=== PATIENT | male | born 1950 | race African-American/Black ===

== ENCOUNTER 2018-06-14 20:43 | Inpatient (IN) | payer MEDICAID ==
[~2018-06-14] VITALS: Ht 165.1 cm; Wt 49.9 kg
[~2018-06-14 20:43] MED LIST: Calcium Chloride 10% 10ml carpuject IVP ONE; Magnesium Sulfate 2ml Inj ONE; Sodium Bicarbonate 8.4% 50ml Inj ONE
--- NOTE | 2018-06-14 21:00 | NUR ---
ED Nurse Note: RECIEVED PT BIBA FROM HOME, PT WAS FOUND DOWN IN HIS HOME, UNKNOWN TIME, PT HAS BLOOD SUGAR LEVEL OF 24 REPORTED BY EMS, NO D50 GIVEN, PT IMMEDIATELY PLACED IN BED AND ON CARDIAC MONITORING, PT IS AWAKE AND ORIENTED TO NAME ONLY, PT IS VERY ALTERED, PT IS SPEAKING, AT TIMES CAN REMEMBER SMALL THINGS BUT IS VERY DISORIENTED, TP HAS PATENT SALINE LOCK IN RIGHT AC, PT ALSO NOTED WITH FECES ON ENTIRE BODY, WILL RESUME CARE ORDERED AND CONTINUE TO CLOSELY MONITOR.
--- NOTE | 2018-06-14 21:04 | Emergency Room Report ---
History of Present Illness General Chief Complaint: Abnormal Labs Source: Patient, EMS Present Illness HPI Patient presents by paramedics for altered mental status patient was found to be hypoglycemic at the scene It is reported that the patient's neighbor came to check on him found the patient altered and contacted paramedics Patient is slowly becoming to become more oriented after receiving glucose Patient still remains very sluggish History of present illness is significantly limited from the patient He denies history of diabetes and is otherwise fairly poor historian at this time Allergies: Coded Allergies: No Known Allergies (Verified , 11/08/10) Patient History Limited by: medical condition Past Medical History: see triage record Pertinent Family History: unable to obtain Reviewed Nursing Documentation: PMH: Agreed; PSxH: Agreed Review of Systems All Other Systems: negative except mentioned in HPI Physical Exam Vital Signs Date Time Temp Pulse Resp B/P (MAP) Pulse Ox O2 Delivery O2 Flow Rate FiO2 06/14/18 20:40 98.2 90 20 104/52 98 Room Air Sp02 EP Interpretation: reviewed, normal General Appearance: mild distress Head: normocephalic, atraumatic Eyes: bilateral eye Scleral Injection, bilateral eye other - Pupil sluggishly reactive ENT: no angioedema, dry mucus membranes Neck: full range of motion, supple Respiratory: no retraction, no accessory muscle use, crackles - Bilaterally Cardiovascular #1: regular rate, rhythm, no edema Gastrointestinal: soft Musculoskeletal: other - Patient sluggish to respond, no obvious focal deficit in the upper extremity Neurologic: responsive - To physical stimuli Skin: jaundice Lymphatic: no adenopathy Procedures Critical Care Time Critical Care Time 80 minutes for multiple re-evaluations. Critical presentation with critical findings requiring acute intervention not including any procedural time Medical Decision Making Diagnostic Impression: Primary Impression: Hepatic encephalopathy Additional Impressions: Non-STEMI (non-ST elevated myocardial infarction) Hypokalemia Hypoglycemia ER Course Patient presents by paramedics with very limited information patient himself extremely poor historian and in extreme status No other family or neighbors had presented we do not have any other contact information Patient's insurance company was contacted and after review of their medical records they also do not have any information to provide us Patient continues to have significantly abnormal findings laboratory work including significantly low potassium level Elevated troponin level Multiple electrolyte abnormalities CT imaging does not reveal any obvious pathology there is some abnormality on the chest however Patient initiated on prostration antibiotics Lactic acid also remains significantly elevated Ammonia level also elevated All being addressed in the emergency room and admitted in critical condition Sepsis reexamination Time:0100 VS refer to nursing note cvs: RRR respiratory: improved respiration peripheral pulses: 2+radial cap refill:<2 seconds skin exam: warm, dry, not mottled Labs Test 06/14/18 21:00 06/14/18 22:20 06/14/18 22:50 06/15/18 00:30 White Blood Count 8.5 K/UL (4.8-10.8) Red Blood Count 3.28 M/UL (4.70-6.10) Hemoglobin 9.2 G/DL (14.2-18.0) Hematocrit 27.4 % (42.0-52.0) Mean Corpuscular Volume 84 FL (80-99) Mean Corpuscular Hemoglobin 28.1 PG (27.0-31.0) Mean Corpuscular Hemoglobin Concent 33.6 G/DL (32.0-36.0) Red Cell Distribution Width 13.0 % (11.6-14.8) Platelet Count 78 K/UL (150-450) Mean Platelet Volume 9.9 FL (6.5-10.1) Neutrophils (%) (Auto) % (45.0-75.0) Lymphocytes (%) (Auto) % (20.0-45.0) Monocytes (%) (Auto) % (1.0-10.0) Eosinophils (%) (Auto) % (0.0-3.0) Basophils (%) (Auto) % (0.0-2.0) Differential Total Cells Counted 100 Neutrophils % (Manual) 73 % (45-75) Lymphocytes % (Manual) 7 % (20-45) Monocytes % (Manual) 2 % (1-10) Eosinophils % (Manual) 0 % (0-3) Basophils % (Manual) 0 % (0-2) Metamyelocytes % 2 % (0-0) Band Neutrophils 16 % (0-8) Platelet Estimate Decreased Platelet Morphology Normal Polychromasia 1+ Hypochromasia 1+ Anisocytosis 1+ Target Cells 1+ Prothrombin Time 19.1 SEC (9.30-11.50) Prothromb Time International Ratio 1.9 (0.9-1.1) Activated Partial Thromboplast Time 40 SEC (23-33) Sodium Level 141 MMOL/L (136-145) 143 MMOL/L (136-145) Potassium Level 1.2 MMOL/L (3.5-5.1) 1.4 MMOL/L (3.5-5.1) Chloride Level 103 MMOL/L (98-107) 106 MMOL/L (98-107) Carbon Dioxide Level 21 MMOL/L (21-32) 15 MMOL/L (21-32) Anion Gap 17 mmol/L (5-15) 22 mmol/L (5-15) Blood Urea Nitrogen 16 mg/dL (7-18) 17 mg/dL (7-18) Creatinine 1.6 MG/DL (0.55-1.30) 1.6 MG/DL (0.55-1.30) Estimat Glomerular Filtration Rate 52.8 mL/min (>60) 52.8 mL/min (>60) Glucose Level 90 MG/DL (74-106) 60 MG/DL (74-106) Lactic Acid Level 8.70 mmol/L (0.4-2.0) 12.70 mmol/L (0.66-2.22) Calcium Level 7.3 MG/DL (8.5-10.1) 6.6 MG/DL (8.5-10.1) Phosphorus Level 2.0 MG/DL (2.5-4.9) Magnesium Level 1.8 MG/DL (1.8-2.4) Total Bilirubin 2.3 MG/DL (0.2-1.0) Direct Bilirubin 1.8 MG/DL (0.0-0.3) Aspartate Amino Transf (AST/SGOT) 85 U/L (15-37) Alanine Aminotransferase (ALT/SGPT) 84 U/L (12-78) Alkaline Phosphatase 92 U/L (46-116) Ammonia 123 umol/L (11-32) Total Creatine Kinase 152 U/L (26-308) Creatine Kinase MB 3.5 NG/ML (0.0-3.6) Creatine Kinase MB Relative Index 2.3 Troponin I 0.120 ng/mL (0.000-0.056) Pro-B-Type Natriuretic Peptide 4040 pg/mL (0-125) Total Protein 4.0 G/DL (6.4-8.2) Albumin 1.6 G/DL (3.4-5.0) Globulin 2.4 g/dL Albumin/Globulin Ratio 0.7 (1.0-2.7) Lipase 53 U/L (73-393) Serum Alcohol < 3 mg/dL Urine Color Yellow Urine Appearance Clear Urine pH 6.5 (4.5-8.0) Urine Specific [place] 1.010 (1.005-1.035) Urine Protein 2+ (NEGATIVE) Urine Glucose (UA) 1+ (NEGATIVE) Urine Ketones Negative (NEGATIVE) Urine Blood 5+ (NEGATIVE) Urine Nitrite Negative (NEGATIVE) Urine Bilirubin 1+ (NEGATIVE) Urine Ictotest Positive (NEGATIVE) Urine Urobilinogen 4 MG/DL (0.0-1.0) Urine Leukocyte Esterase 1+ (NEGATIVE) Urine RBC 20-30 /HPF (0 - 0) Urine WBC 2-4 /HPF (0 - 0) Urine Squamous Epithelial Cells None /LPF (NONE/OCC) Urine Bacteria Moderate /HPF (NONE) Urine Opiates Screen Negative (NEGATIVE) Urine Barbiturates Screen Negative (NEGATIVE) Phencyclidine (PCP) Screen Negative (NEGATIVE) Urine Amphetamines Screen Negative (NEGATIVE) Urine Benzodiazepines Screen Negative (NEGATIVE) Urine Cocaine Screen Negative (NEGATIVE) Urine Marijuana (THC) Screen Positive (NEGATIVE) EKG Diagnostic Results Rate: normal Rhythm: NSR ST Segments: other - Nonspecific ST changes, EKG findings concerning for hypokalemia Rhythm Strip Diag. Results EP Interpretation: yes Rate: 88 Rhythm: NSR, no PVC's, no ectopy Chest X-Ray Diagnostic Results Chest X-Ray Diagnostic Results : Chest X-Ray Ordered: Yes # of Views/Limited/Complete: 1 View Indication: Shortness of Breath EP Interpretation: Yes Interpretation: no consolidation, no effusion, no pneumothorax, other - Right-sided increased markings with possible patchy infiltrate, heart size normal small effusions Impression: Other - Right-sided infiltrate Electronically Signed by: Jessica Young, DO CT/MRI/US Diagnostic Results CT/MRI/US Diagnostic Results : Impression CT chest/ abdomen pelvis:CT chest: Pulmonaryarteries:No pulmonaryembolism. Aorta:No aortic dissection or aneurysm. Lungs: Severe centrilobular emphysema. Areas of increased opacities in the right middle lobe and bilateral lower lobes, possiblyrepresenting edema or infectious/ inflammatoryprocess. Mild bilateral pleural effusions. Heart:Normal heart size. No pericardial effusion. Bones:No fracture. CT abdomen and pelvis: Liver: Enlarged severe fattyinfiltration. Gallbladder:No acute findings. Spleen, pancreas, and adrenal glands:No acute findings. Kidneys:No hydronephrosis or obstructive nephrolithiasis. Bowel:No bowel obstruction. Severelydistended rectumwith underlying air, nonspecific. Fluid-filled small bowel, correlate for gastroenteritis. Bladder:Unremarkable. Pelvic organs:Unremarkable. Aorta:No aneurysm. Bones:No acute fracture. Multiple ventral hernias containing loops of colon without causing obstruction. Mild ascites. Diffuse soft tissue stranding. Likelyrepresents mild anasarca CT head: no acute disease Last Vital Signs Date Time Temp Pulse Resp B/P (MAP) Pulse Ox O2 Delivery O2 Flow Rate FiO2 06/14/18 20:40 98.2 90 20 104/52 98 Room Air Status: improved Disposition: ADMITTED INPATIENT Condition: Critical Jessica Young DO Jun 14, 2018 21:04
[2018-06-14] MEDS ORDERED: NKM (21:13)
[2018-06-14 21:33] LABS: HEMATOCRIT 27.4 % (42.0-52.0); HEMOGLOBIN 9.2 G/DL (14.2-18.0); MEAN CORPUSCULAR VOLUME 84 FL (80-99); PLATELET COUNT 78 K/UL (150-450); RED BLOOD COUNT 3.28 M/UL (4.70-6.10); WHITE BLOOD COUNT 8.5 K/UL (4.8-10.8)
--- NOTE | 2018-06-14 21:40 | NUR ---
ED Nurse Note: PT GIVEN AMP OF D50 ORDERRED WITH IMMEDIATE RESULTS, PT IS MORE AWAKE AND ALERT, PT STATES HE HAS MONEY IN HIS WALLET, PLACED CALL TO SEC[employer]ITY [employer], MONEY NOPTED, PT ENTIRE WALLED LOCKED IN HOSPITAL SAFE, PT WITH RECEIPT#[id number], PT MUMBLING AND MAKING MOSTLY NON-COMPREHENSIBLE SOUNDS AND REMAINS CONFUSED, WILL CONITNUE TO CLOSELY MONITOR AND RESUME CARE ORDERED AND CONTINUE TO CLOSELY MONITOR.
[2018-06-14 21:41] LABS: INR 1.9 (0.9-1.1)
[2018-06-14 21:56] LABS: ALANINE AMINOTRANSFERASE 84 U/L (12-78); ALBUMIN 1.6 G/DL (3.4-5.0); ALBUMIN/GLOBULIN RATIO 0.7 (1.0-2.7); ALKALINE PHOSPHATASE 92 U/L (46-116); ANION GAP 17 mmol/L (5-15); ASPARTATE AMINO TRANSFERASE 85 U/L (15-37); BILIRUBIN,TOTAL 2.3 MG/DL (0.2-1.0); BLOOD UREA NITROGEN 16 mg/dL (7-18); CALCIUM 7.3 MG/DL (8.5-10.1); CARBON DIOXIDE 21 MMOL/L (21-32); CHLORIDE 103 MMOL/L (98-107); CKMB 3.5 NG/ML (0.0-3.6); CREATINE KINASE 152 U/L (26-308); CREATININE 1.6 MG/DL (0.55-1.30); SODIUM 141 MMOL/L (136-145)
[2018-06-14 21:58] LABS: POTASSIUM 1.2 MMOL/L (3.5-5.1)
[2018-06-14 21:59] LABS: BILIRUBIN,DIRECT 1.8 MG/DL (0.0-0.3)
[2018-06-14 22:00] VITALS: BP 130/81
[2018-06-14] MEDS ORDERED: cefTRIAXone 1 GM in NS 55 ML IVPB ONE (22:15)
[2018-06-14] MEDS ORDERED: Vancomycin 1 GM in NS 275 ML IVPB ONE (22:15)
[2018-06-14 22:20] LABS: AMMONIA 123 umol/L (11-32)
--- NOTE | 2018-06-14 22:50 | NUR ---
ED Nurse Note: PT RETURNED FROM IMAGING, REPEAT LACTIC DRAWN AND SENT, PT RECIEVING ORDERED MEDS, REMAINS ON CARDIAC MONITORING, AND ALTERED, PT IS SPEAKING BUT CONFUSED, PT GIVEN FREQUENT RE-ORIENTATION PT ALSO REPOSITIONED AND TURNED, NOTED WITH SMALL PRESSURE AREAS ON BILAT COCCYS/SACRY AREA, WILL FOLLOW SKIN PROTOCOL AND PREPARE PT FOR ICU ADMISSION.
[2018-06-14 22:58] LABS: APPEARANCE,URINE CLEAR; BILIRUBIN, URINE 1+ (NEGATIVE); GLUCOSE, URINE (UA) 1+ (NEGATIVE); KETONES,URINE NEGATIVE (NEGATIVE); LEUKOCYTE ESTERASE ,URINE 1+ (NEGATIVE); NITRITE,URINE NEGATIVE (NEGATIVE); PH,URINE 6.5 (4.5-8.0); PROTEIN,URINE 2+ (NEGATIVE); UROBILINOGEN,URINE 4 MG/DL (0.0-1.0)
[2018-06-14 22:59] LABS: COLOR,URINE YELLOW
[2018-06-14 23:00] VITALS: BP 117/89
[2018-06-14] MEDS ORDERED: Lactulose 20gm/30ml UDC ORAL ONE (23:15)
[2018-06-15] VITALS: BP 136/92
--- NOTE | 2018-06-15 00:35 | NUR ---
ED Nurse Note: Pt medicated as ordered, labs re-drawn and sent, gave new orders for potassium, started and infusing well, iv site intact and patent, pt tolerating well, pt remains very confused and disoriented, at times does recall place and event but only for short time, pt denies pain, pt took all oral meds without complications, placed call to icu for report, waiting for rn to return call.
[2018-06-15 01:00] VITALS: BP 149/96
[2018-06-15 01:01] LABS: ANION GAP 22 mmol/L (5-15); BLOOD UREA NITROGEN 17 mg/dL (7-18); CALCIUM 6.6 MG/DL (8.5-10.1); CARBON DIOXIDE 15 MMOL/L (21-32); CHLORIDE 106 MMOL/L (98-107); CREATININE 1.6 MG/DL (0.55-1.30); SODIUM 143 MMOL/L (136-145)
[2018-06-15 01:05] LABS: POTASSIUM 1.4 MMOL/L (3.5-5.1)
--- NOTE | 2018-06-15 01:30 | NUR ---
ED Nurse Note: PLACED CALL TO ICU UNIT AGAIN, REPORT GIVEN TO RAMON HERNANDEZ, PT BEING TAKEN TO UNIT VIA [place] PROT[employer]OLS WITH ER-TECH AND RN, ALL FORMS COMPLETED, NAD NOTED DURING TRANSFER TO FLOOR UNIT FOR ADMISSION.
[2018-06-15 02:00] VITALS: BP 133/84
--- NOTE | 2018-06-15 02:15 | NUR ---
NURSE NOTES: Admitted from ED this 67yo male with ALOC, sepsis, hypoglycemia. Pt awake, alert oriented to self, and place but appears weak. Moves all extremities, follow commands. Currently denies any pain, denies SOB, No distress otherwise. NSR on the monitor. RAC has PIV g20 with KCL 10meq running. Saline lock on LAC g20 patent. Skin cool to touch, temp 92.2 rectally. Skin rough, dry and scaly with small abrasions on left leg and knee and redness on buttocks area. FC in place. Warming blanket applied over pt. Call placed to Dr Marie for admission orders.
--- NOTE | 2018-06-15 02:45 | NUR ---
NURSE NOTES: PMD has not responded yet; 2nd call placed
[2018-06-15 03:00] VITALS: BP 120/84
--- NOTE | 2018-06-15 03:20 | NUR ---
NURSE NOTES: Dr Marie has not returned call; escalated call to Nsg supv who okd to call MDs mobile phone. Message left
--- NOTE | 2018-06-15 03:45 | NUR ---
NURSE NOTES: Still no response from Dr Marie; escalated call to Dr Luong who ordered to give additional 40meqKCL IVPB
[2018-06-15 04:00] VITALS: BP 120/82
--- NOTE | 2018-06-15 04:15 | NUR ---
NURSE NOTES: Accucheck 53, asymptomatic; 2 cups OJ with sugar given po. Well tolerated. Will recheck in 30 minutes. KCL 10 meq infusing (1 of 4 bags)
--- NOTE | 2018-06-15 05:27 | NUR ---
NURSE NOTES: Pt's HR went down to 57 from 86; went to check pt immediately and found to be unresponsive with clenched teeth, pulses still palpable but faint; code blue called. (see code blue sheet)
[2018-06-15] MEDS ORDERED: Sodium Bicarbonate 50ml Carp ONE ×2 (05:46)
[2018-06-15] MEDS ORDERED: Calcium Chloride 10% 10ml carpuject IVP ONE (05:46)
--- NOTE | 2018-06-15 05:47 | NUR ---
NURSE NOTES: code blue outcome unsuccessful after resuscitative attempts by the team. Pronounced by ERMD @[id number]. No phone numbers for the listed relative(sister, Flora Rooney). Called glass scullion and accepted the case. Pt has a yellow metal necklace which was removed and included with his other belongings. Given to Nsestrellita supbri
--- NOTE | 2018-06-15 05:59 | Emergency Room Report ---
History of Present Illness General Chief Complaint: Abnormal Labs Source: Patient Present Illness Allergies: Coded Allergies: No Known Allergies (Verified , 11/08/10) Nursing Documentation-[facility] Past Medical History: No History, Except For Hx Cardiac Problems: No Hx Cancer: No Hx Neurological Problems: No Physical Exam Vital Signs Date Time Temp Pulse Resp B/P (MAP) Pulse Ox O2 Delivery O2 Flow Rate FiO2 06/14/18 20:40 98.2 90 20 104/52 98 Room Air Procedures Central Line Central Line : Consent: Emergent Central Line Lumen: triple Maximal Sterile Barrier Tech: yes cap, yes mask, yes sterile gown, yes sterile gloves, yes large sterile sheet, yes hand hygiene, yes chlorhexidine prep Central Line Postion: femoral (R) Complications: none Central Line Post Position: sutured Attempts: One Patient Tolerated: Well Complications: None CPR/Code Blue CPR/Code Blue Narrative I was called upstairs to a CODE BLUE in the ICU This is a patient who was just seen by myself in the emergency room Patient was in extreme status Significantly abnormal blood work with lactic acid over 8 CPR continued patient received epinephrine Also had episodes of V. fib received several cardio defibrillations Patient also received calcium Sodium bicarbonate and further glucose CPR continued patient had airway intubation and central line placement as well After multiple interventions patient remains at this time in asystole All attempts appearing futile patient has critically findings including the potassium level along with hepatic encephalopathy At this time patient was pronounced as all attempts appearing futile at 05: 47 Intubation Intubation : Consent: Emergent Intubation Method: orotracheal Tube Size (cm): 7.5 Breath Sounds after Intubation: equal Intubation Complications: no complications Post Intubation Xray: No Attempts: One Patient Tolerated: Well Complications: None Medical Decision Making Diagnostic Impression: Primary Impression: Cardiopulmonary arrest Last Vital Signs Date Time Temp Pulse Resp B/P (MAP) Pulse Ox O2 Delivery O2 Flow Rate FiO2 06/15/18 04:00 Room Air 06/15/18 04:00 82 06/15/18 04:00 92.2 23 120/82 98 Status: worsened Disposition: Condition: Critical Referrals: [facility],REFERRING (PCP) Jessica Young DO Jun 15, 2018 05:59
--- NOTE | 2018-06-15 06:00 | NUR ---
NURSE NOTES: Yellow metal necklace removed and given to RN tray line supervisor to keep in the safe together with his other valuables. Belongings list updated and signed.
--- NOTE | 2018-06-15 06:15 | NUR ---
NURSE NOTES: MD Marie called back, Notified him that patient had
--- NOTE | 2018-06-15 06:30 | NUR ---
NURSE NOTES: [facility] called and stated they will be coming for the body. Notified them patient will be placed in our morgue. Stated "That's Fine". [employer] Evan notified
--- NOTE | 2018-06-15 06:30 | NUR ---
NURSE NOTES: Dr Marie called and confirmed expiration of pt.
--- NOTE | 2018-06-15 06:32 | History & Physical ---
History and Physical History & Physicial Patient prior my visit, unable to examine him. MD Frank Spann Payam MD Jun 15, 2018 06:32
--- NOTE | 2018-06-15 06:39 | NUR ---
CODE BLUE: See Code sheet which remains on paper. Time of [address] Jessica Cee.
--- NOTE | 2018-06-15 08:44 | Diagnostic Imaging Report ---
Indication: Shortness of breath Technique: One view of the chest Comparison: 11/15/2010 Findings: Reticular nodular opacities in the right mid and lower lung may reflect infiltrate or may reflect areas of fibrosis. These are not evident on prior 2011 exam, however. There is central bronchial wall thickening bilaterally. The left lung and pleural space are clear. Previously demonstrated left pleural effusion is not evident on the current exam. The heart size is normal. Impression: Right mid and lower lung reticular nodular opacities; appearance is suggestive of chronic fibrotic change but could indicate acute infiltrate. Correlate with clinical findings
--- NOTE | 2018-06-15 08:46 | Diagnostic Imaging Report ---
Indications: Altered mental status Technique: Spiral acquisitions obtained through the brain. Angled axial and coronal 5 x 5 mm slices were reconstructed. Total dose length product 1425.35 mGycm. CTDI vol(s) 70.38 mGy. Dose reduction achieved using automated exposure control Comparison: None. Findings: No acute intracranial hemorrhage or edema. No mass effect nor midline shift. Normal kaur-white differentiation. There is mild age-related enlargement of the ventricles and extra axial CSF spaces there is minimal periventricular deep white matter low-attenuation.. There is a right temporal tip arachnoid cyst incidentally noted. Intact calvarium. There is minimal bilateral maxillary sinus disease. The visualized orbits are unremarkable. Impression: Negative for acute intracranial bleed or mass effect Minimal chronic and age-related changes, as described Right anterior renal fossa arachnoid cyst incidentally noted. Minimal sinus disease This agrees with the preliminary interpretation provided overnight by [facility] teleradiology service. The CT scanner at [facility] is accredited by the [employer] and the scans are performed using protocols designed to limit radiation exposure to as low as reasonably achievable to attain images of sufficient resolution adequate for diagnostic evaluation.
--- NOTE | 2018-06-15 10:05 | NUR ---
Social Service Note SW located patient's cami Rooney [phone]. Mrs. Rooney lives in [place] and will be on her way now to [place]. Mrs. Rooney states patient was planning to move to her home this weekend. Emotional support provided. Information provided to nursing supervisor commissary production.
--- NOTE | 2018-06-15 10:08 | Diagnostic Imaging Report ---
CLINICAL INDICATION:Left lower abdominal pain, 7-10, nonradiating. Recent chest radiograph performed for shortness of breath TECHNIQUE: No oral contrast, per emergency room physician request. No IV contrast, per emergency room physician request. Spiral acquisitions obtained through the chest, abdomen, and pelvis. Multiplanar reconstructions were generated. Total dose length product 650.48 mGycm. CTDIvol(s) 9.05 mGy. Radiation dose was minimized using automated exposure control COMPARISON: There is a comparison chest CT dated 11/08/2010. No comparison abdomen pelvis CT is demonstrated FINDINGS Chest: There is extensive bullous emphysema seen throughout both lungs. The lungs are hyperinflated. Confluent fibrosis with cicatrization and bronchiectasis is seen in the posterior right upper lobe. Areas of honeycombing are seen in the inferior right upper lobe, throughout much of the right lower lobe, and in the posterior left lower lobe. Extent of disease has increased considerably since the previous study. The previously demonstrated left pleural effusion is no longer evident, however. No definite infiltrates. There is suggestion of trace pleural fluid on the right, however. The heart size is normal. There is minimal pericardial thickening. There is some infiltration of the pericardial fat. There are coronary artery calcifications. No mediastinal or hilar mass or adenopathy. The thyroid is unremarkable. There is edema of the chest wall. There is evidence of interim considerable weight loss, with markedly decreased body fat now present. The bones are unremarkable. Abdomen pelvis: There are multiple anterior abdominal wall hernias demonstrated. There are at least 6 distinct separate bowel segments contained within the various hernia sacs. The anatomy is complex and difficult to follow. 5 of the herniated segments are small bowel and one is transverse colon. The most cephalad hernia contains the transverse colon, does not appear to be obstructive. The same hernia sac also contains a dilated loop of small bowel which is dilated both entering and exiting the hernia sac, presumably indicating absence of obstruction at this hernia site but proximal to a more distal obstructing hernia. Present other hernia sacs, multiple small bowel loops are very dilated with gas and fluid. There is a right lower quadrant hernia which appears to contain dilated small bowel, with the small bowel exiting being nondilated. However, at least 2 other hernias appear to contain dilated small bowel with nondilated exiting distal small bowel. The distal ileum is equivocally mildly thick walled. No definite wall thickening elsewhere. There is a small amount of free fluid within the mesenteric root. There is also generalized congestion of the mesentery. There is colonic diverticulosis. No evidence of diverticulitis. No free intraperitoneal gas. The stomach is distended. The distal esophagus is somewhat thick walled. Lack of IV contrast limits assessment of the solid organs The liver is diffusely very hypoattenuating. What appears to be a hyperdense lesion in segment 7 is actually fluid attenuation, consistent with a cyst demonstrated on the prior chest CT as well and only appears hyperdense because it is denser than the surrounding fatty liver. The gallbladder, bile ducts, pancreas, spleen, adrenals, kidneys are unremarkable. No retroperitoneal or mesenteric mass or adenopathy. No pelvic mass or adenopathy. There is a Anguiano catheter within the bladder, which is nondistended. There is generalized edema of the subcutaneous fat as well as of the mesenteric fat. IMPRESSION: Multiple complex ventral hernias, detailed anatomy somewhat difficult to discern. Markedly dilated gas-filled and fluid-filled small bowel loops indicate small bowel obstruction secondary to it least one of these and possibly 2 or more others. No definite evidence of strangulation. This finding represents a discrepancy from the [facility] preliminary report. Discrepant findings phoned to attending physician Dr. Marie and [facility] notified via their website. The remaining findings are essentially in agreement with the preliminary report Equivocal minimal distal ileal wall thickening, could indicate component of enteritis Extensive bullous emphysema, markedly progressive since prior chest CT of 11/08/2010 Confluent areas of fibrosis, some with cicatrization, considerable honeycombing, consistent with chronic end-stage fibrosis, also progressive since previous exam. Superimposed areas of acute infiltration not completely excludable the rectum is mildly distended with gas and stool Small right pleural effusion Marked hepatic steatosis Mild anasarca, with diffuse edema of the subcutaneous fat. Mesenteric congestion, may be related to the anasarca but could also be related to the above-mentioned small bowel issues. Anguiano catheter Minimal pericardial thickening Equivocal mild distal esophageal wall thickening Incidental finding findings of right lobe liver cysts, colonic diverticulosis The CT scanner at [facility] is accredited by the [employer] and the scans are performed using protocols designed to limit radiation exposure to as low as reasonably achievable to attain images of sufficient resolution adequate for diagnostic evaluation.
--- NOTE | 2018-06-15 17:26 | Cardiology Report ---
APPROVED REPORT EKG Measurement Heart [id number] Normal sinus rhythm Abnormal ECG
--- NOTE | 2018-06-17 09:13 | NUR ---
CASE MANAGEMENT: CM review and clinical information (face sheet/ ER MD notes/ H&P) faxed to [facility] @ [phone].
--- NOTE | 2018-06-18 12:39 | Discharge Summary ---
Discharge Summary Discharge Summary _ SUMMARY DATE OF ADMISSION: 06/14/2018 DATE OF EXPIRATION: 06/15/2018 REASON FOR ADMISSION: 67 years old male with past medical history of chronic obstructive pulmonary disease, left [facility], presented to emergency department due to altered mental status. At the scene patient was found to be hypoglycemic. Apparently neighbor came IN to check on him and found the patient to be altered . Paramedics subsequently were contacted. After receiving glucose , patient was slowly becoming more oriented, however still remain sluggish. Patient denied history of diabetes , however overall was a poor historian due to altered mental status. Upon initial evaluation vital signs were stable. Laboratory workup revealed no leukocytosis, hemoglobin 9.2, hematocrit 27.4, platelets 78. Next INR 1.9. Potassium 1.2 BUN 16, creatinine 1.6. Glucose 90. Lactic acid 8.7. Magnesium 1.8, phosphorus 2.0. Ammonia level 123. Troponin elevated 0.12, total CK 152. ProBNP 4040. EKG revealed nonspecific changes concerning for hypokalemia. Total bilirubin 2.3, direct bilirubin 1.8. AST 85, ALT 84. Albumin 1.6 Urinalysis revealed hematuria, +2 protein, +1 glucose, +1 leukocyte esterase, mild pyuria, and moderate bacteria. Urine toxicology screen was positive for marijuana. Serum alcohol level was negative. Chest x-ray revealed right mid and lower lung reticular nodular opacity with appearance suggestive of chronic fibrotic changes, but could indicate acute infiltrate. CT of the head demonstrated no acute intracranial bleeding or mass-effect. Minimal chronic and age-related changes were noted. CT of the chest, abdomen and pelvis revealed multiple complex ventral hernias, detailed anatomy somewhat difficult to discern. Markedly dilated gas-filled and fluid-filled small bowel loops indicate small bowel obstruction secondary to it least one of these and possibly 2 or more others. No definite evidence of strangulation. Equivocal minimal distal ileal wall thickening, could indicate component of enteritis Extensive bullous emphysema, markedly progressive since prior chest CT of 2010 Confluent areas of fibrosis, some with cicatrization, considerable honeycombing, consistent with chronic end-stage fibrosis, also progressive since previous exam. Superimposed areas of acute infiltration not completely excludable the rectum is mildly distended with gas and stool Small right pleural effusion Marked hepatic steatosis Mild anasarca, with diffuse edema of the subcutaneous fat. Mesenteric congestion, may be related to the anasarca but could also be related to the above-mentioned small bowel issues. Correction of acute hypokalemia initially started in ED. Patient started on lactulose. Patient started on the fluid challenge. Patient pancultured and received empiric antibiotics. Patient subsequently admitted to ICU for further management HOSPITAL COURSE: Patient admitted to ICU. Patient started on IV fluids and empiric antibiotics. Electrolytes further corrected as needed. Supplemental oxygen provided as needed to keep pulse oximetry above 92%. Pulmonary toilet was on standby as needed. Patient was on the IV fluids with dextrose. Blood sugar was closely monitored. At the time of this dictation, blood culture 1 out of 4 grew Staphylococcus coagulase negative, likely contaminant. Urine culture revealed Streptococcus bovis, unlikely a urinary pathogen, but possible. CODE BLUE was called spud grader on 06/15 due to asystole. ACLS protocol initiated. Patient undergone emergency oral intubation and placement of central line. Despite multiple interventions patient remained in asystole. All attempts appeared to be futile. In addition , patient had critical clinical findings , including acute hypokalemia and hepatic encephalopathy. Patient was pronounced at 05:47 on 06/15/18 . Cause of : cardiopulmonary arrest FINAL DIAGNOSES: Status post cardiopulmonary arrest Acute respiratory failure requiring intubation Hepatic encephalopathy Elevated troponin, possible NSTEMI Hypoglycemia Severe lactic acidosis Possible sepsis Likely small bowel obstruction COPD with bullous emphysema, Possible pneumonia Acute severe hypokalemia Acute kidney injury Elevated liver enzymes possibly due to marked hepatic steatosis Anemia Thrombocytopenia I have been assigned to dictate discharge summary for this account. I was not involved in the patient's management. Ana Mcarthur NP Jun 18, 2018 12:39
== END 2018-06-15 05:47 | disposition expired | DRG 720 ==
LOC: EDBD 20:43 → EMR 20:59 → EDBEDREQTM 22:17 → EDBEDREQ 22:17 → EDBEDREQSVC 22:17 → ICU 22:35 → EDBEDREQ 22:40
PROC: 0BH17EZ Insertion of Endotracheal Airway into Trachea, Via Natural or Artificial Opening (ICD-10-PCS; principal; 2018-06-14)
DX: A41.9 Sepsis, unspecified organism (principal); I21.4 Non-ST elevation (NSTEMI) myocardial infarction; J96.00 Acute respiratory failure, unspecified whether with hypoxia or hypercapnia; N17.9 Acute kidney failure, unspecified; K56.609 Unspecified intestinal obstruction, unspecified as to partial versus complete obstruction; J18.9 Pneumonia, unspecified organism; D69.6 Thrombocytopenia, unspecified; J44.9 Chronic obstructive pulmonary disease, unspecified; K72.90 Hepatic failure, unspecified without coma; E16.2 Hypoglycemia, unspecified; E87.6 Hypokalemia; K76.0 Fatty (change of) liver, not elsewhere classified; D64.9 Anemia, unspecified
CPT/HCPCS: 31500; 36415; 70450; 71045; 71250; 74176; 80048; 80053; 80307; 80329; 81003; 82140; 82248; 82550; 82553; 82962; 83605; 83690; 83735; 83880; 84100; 84484; 85007; 85025; 85610; 85730; 87040; 87081; 87086; 92950; 93005; 96361; 96365; 96366; 96367; 96368; 96375; 99291; J0171; J8499